=== PATIENT | male | born 1955 | race Caucasian/White ===

== ENCOUNTER 2022-05-30 07:27 | Outpatient (CLI) | payer MEDICARE, SELFPAY ==
--- NOTE | ~2022-05-30 | US_ITS ---
US abdomen limited INDICATION: Fatty liver disease PROCEDURE: Realtime right upper abdominal ultrasound. COMPARISON: No prior studies for comparison. FINDINGS: The pancreas is normal without focal mass or pancreatic ductal dilation. Liver echotexture is diffusely increased, consistent with fatty infiltration. There is focal fatty sparing near the ga llbladder. There is normal directional flow in the portal vein. The gallbladder is normal without stones, gallbladder wall thickening or pericholecystic fluid. Comm on bile duct measures 4 mm. No sonographic Brothers's sign. IMPRESSION: 1: Hepatic steatosis. Reviewed, dictated and finalized at location A. [employer] IMPRESSION: 1: Hepatic steatosis.
== END 2022-05-30 07:28 | disposition home or self-care (01) ==
PROVIDERS: PCP Student in an Organized Health Care Education/Training Program; Visit Provider Student in an Organized Health Care Education/Training Program
DX: K76.0 Fatty (change of) liver, not elsewhere classified (principal); R74.8 Abnormal levels of other serum enzymes
CPT/HCPCS: 76705

== ENCOUNTER 2024-03-17 12:45 | Outpatient (CLI) | payer MEDICARE, SELFPAY ==
--- NOTE | ~2024-03-17 | CT_ITS ---
CT orbit BI wo con Ordering provider: Edson Martinez History: . acute papilledema . Comparison: None. Technique: Thin slice axial CT of the orbits was performed without contrast. Coronal reformatted imag es were also obtained. Radiation reduction technique utilized. The dose-length product was 232.92 mGy-cm FINDINGS: PARANASAL SINUSES: Right maxillary, Left ethmoid and right sphenoid sinus disease. BONES: No facial f racture. ORBITS AND SUPERFICIAL SOFT TISSUES: The optic globes and orbits are normal. Focal dilatation of the CSF surrounding the distal optic nerves is seen which is most likely normal. The superficial soft tis sues are normal. VISUALIZED MASTOIDS: Well aerated. IMPRESSION: NO ORBITAL FRACTURE IDENTIFIED. No significant abnormality seen in both eye globes Reviewed, dictated and finalized at location A.
== END 2024-03-17 12:46 | disposition home or self-care (01) ==
PROVIDERS: PCP Ophthalmology
DX: H47.10 Unspecified papilledema (principal)
CPT/HCPCS: 70480